=== PATIENT | female | born 1950 | race Caucasian/White ===

== ENCOUNTER → 2017-08-02 | Day surgery (SDC) | payer MEDICARE ==
[~2017-08-02] VITALS: Ht 165.1 cm; Wt 74.0 kg
[~2017-08-02] MED LIST: *ONDANSETRON 4 MG VIAL PERIprocedural Use ONLY ONE; ACETAMINOPHEN/HYDROcodone 325 MG/7.5 MG TAB PO PRN; ATEN50TA7 PO; BUPIVACAINE HCL PF 0.5% 30 ML VIAL ONE; CEPH500T PO; CHLORHEXIDINE GLUCONATE 2 % 1 PACK (2 CLOTHS) TOPICAL PRN; CIPROFLOXACIN 400 MG ONE; CITA10TA4 PO; DEXAMETHASONE SOD PHOS 4 MG/ML VIAL IV ONE; DO NOT ADM ANY ANTICOAGULANT DRUGS PRN; FAMOTIDINE 20 MG/2 ML VIAL ONE; HYDR-3288 PO; HYDR-3516 PO; HYDROmorphone HCL PF 2 MG/ML VIAL ONE; KETOROLAC TROMETHAMINE 30 MG/ML (IVP) VIAL IV PUSH ONE; LACTATED RINGER'S 1000 ML INJ 1,000 ML IV ONE; LACTATED RINGER'S 1000 ML IV PRN; LIDOCAINE HCL 1% PF 5 ML SYRINGE OTHER ONE; LIDOCAINE HCL 2% 50 ML VIAL ONE; MEPERIDINE HCL 25 MG/ML VIAL IM PRN; METOPROLOL TARTRATE 25 MG TAB PO PRN; MIDAZOLAM HCL 2 MG/2 ML VIAL ONE; MUPIROCIN 2% OINT 22 GM TUBE ONE; NEOMYCIN/POLYMYXIN 1 ML G.U. IRRIGANT ONE; ONDANSETRON HCL 4 MG/2 ML VIAL IV ONE; POVIDONE IODINE 5% (ANTISEPSIS KIT) 4 APPLICATIONS EACH NARE PRN; PROPOFOL 200 MG/20 ML AMP IV ONE; SODIUM CHLORID 0.9% 500 ML IV PRN; ceFAZolin 1,000 MG/NS 100 ML IV SCH; ePHEDrine/NS 25 MG/5 ML SYRINGE IV ONE; hydrALAZINE HCL 20 MG/ML VIAL IV ONE
[2017-08-02 13:13] LABS: AUTOMATED NEUTROPHIL # 4.4 TH/MM3 (1.8-7.7); BASOPHIL # 0.1 TH/MM3 (0-0.2); EOSINOPHIL # 0.1 TH/MM3 (0-0.4); EOSINOPHIL % 1.4 % (0.0-4.0); HEMATOCRIT 38.6 % (35.0-46.0); HEMOGLOBIN 13.5 GM/DL (11.6-15.3); LYMPH % 29.9 % (9.0-44.0); LYMPHOCYTE # 2.2 TH/MM3 (1.0-4.8); MEAN CELL VOLUME 92.8 FL (80.0-100.0); MEAN CORPUSCULAR HEMOGLOBIN 32.4 PG (27.0-34.0); MEAN CORPUSCULAR HGB CONC 34.9 % (32.0-36.0); MEAN PLATELET VOLUME 9.8 FL (7.0-11.0); MONO % 9.2 % (0.0-8.0); MONOCYTE # 0.7 TH/MM3 (0-0.9); NEUT % 58.5 % (16.0-70.0); PLATELET COUNT 194 TH/MM3 (150-450); RED BLOOD COUNT 4.16 MIL/MM3 (4.00-5.30); RED CELL DISTRIBUTION WIDTH 12.3 % (11.6-17.2); WHITE BLOOD COUNT 7.5 TH/MM3 (4.0-11.0)
[2017-08-02 18:14] VITALS: BP 166/88; PULSE 73; RESP 18; TEMP 97.7; O2SAT 97
--- NOTE | 2017-08-04 00:06 | EKG ---
Date Performed: 08/02/2017 Time Performed: 13:38:07 PTAGE: 67 years EKG: SINUS BRADYCARDIA NON-SPECIFIC ST/T WAVE CHANGES NO PREVIOUS TRACING DOCTOR: Kwesi Quiroz Interpretating Date/Time 08/04/2017 00:05:50
--- NOTE | 2017-08-04 21:59 | MP ---
cc: FORD BRENNAN III, M.D. DATE OF OPERATION 08/02/2017 PREOPERATIVE DIAGNOSIS Right index finger open fracture distal phalanx. PROCEDURE 1. Debridement of open fracture right index finger distal phalanx. 2. Open reduction and pinning right index finger distal phalanx. 3. Nail bed repair, complex, right index finger. 4. Use of image intensifier. SURGEON Ford Butler III, MD PROCEDURE The patient was brought to the operating room, placed upon the operating room table. After the correct site and side of surgery were verified by members of each team in the room multiple times including the patient and myself and after adequate preop markings and preoperative written consent were verified by everyone, after adequate preoperative time-out was performed to everyone's satisfaction and after adequate general anesthesia had been achieved, the right upper extremity was prepped and draped in traditional sterile surgical fashion. A 50/50 mixture of 2% plain lidocaine and 0.5% plain Marcaine was infiltrated in the skin and subcutaneous tissue at the dorsal aspect of the index finger and in the superficial tissue in the palm and the second ray provided for a digital block of the index finger. The existing sutures were removed, the wound was retracted open and cultures were obtained and passed off the field as specimens. Thorough irrigation with a liter's worth of saline was performed and curettage of the open distal phalanx fracture was performed. Organized clot was removed. The limb was elevated and the axillary tourniquet inflated to 200 mmHg for a total of approximately 25 minutes. Using a 0.028-cm K-wire, the large distal fragment was reduced to the proximal fragment very gently and the pin was advanced in retrograde fashion, reducing it. A complex repair of the skin was then done reconstructing the tip of the finger using interrupted 4-0 chromic sutures. The nailbed was then flushed out again and then repaired very meticulously using interrupted and horizontal 4-0 chromic sutures. The nailbed splint using the clip bolter and wrapper from the chromic suture was made and put in place and secured with 4-0 chromic sutures. The K-wire was tailored to length, cut and Jurgan's ball was applied. The axillary tourniquet was released. The hand and arm and all the fingers including the index finger became soft, pink, warm and had a brisk capillary refill of less than 2 seconds. A well-padded, well molded volar immobilizing volar radial-sided splint was made out past the Jurgan's ball. The patient was awakened from anesthesia and transported to the Post-Anesthesia Care Unit awake and in stable condition at the end of the case. The sponge, needle and instrument counts were correct at the end of the case as reported by the nurses in the room. MD HARLAN Mcknight III/SCOTT /5:13 PM /9:48 PM
== END | disposition home or self-care (01) ==
LOC: HSDC 12:20
PROVIDERS: ATTEND Orthopaedic Surgery Hand Surgery
DX: S62.630B Displaced fracture of distal phalanx of right index finger, initial encounter for open fracture (principal); R00.1 Bradycardia, unspecified
CPT/HCPCS: 01830; 11011; 11760; 26765; 85025; 87015; 87070; 87102; 87106; 87116; 87205; 87206; 93005; J1170; J2250; J2405; J7120; 76000; J0360; J0744; J1100; J1885